=== PATIENT | female | born 1945 | race Caucasian/White ===

== ENCOUNTER 2023-11-23 06:58 | Day surgery (SDC) | payer MEDICARE, SELFPAY ==
[2023-11-10 06:57] VITALS: BMI 50.1
[2023-11-23] VITALS (27 sets, daily range): BP systolic 135–172; BP diastolic 63–104; BMI 48.2
[2023-11-23] MEDS: NSS 345 IV (08:14)
[2023-11-23 09:49] LABS: ACT-LR - POC 306 Seconds (116-155)
--- NOTE | 2023-11-23 10:26 | ITS.CL.CATH ---
Cigarette [facility]pper - Catheterization
Cardiac Catheterization
Procedure Report:
CARDIAC CATHETERIZATION REPORT
Date of Procedure: 11/23/2023
Referring: Sami Guo MD
Indication: Progressive exertional dyspnea with severe aortic stenosis
HEMODYNAMIC DATA
AO: 128/59
LV: Not done
LEFT VENTRICULOGRAPHY: Not done as we chose not to cross the stenotic aortic valve
CORONARY ANGIOGRAPHY
Dominance: Right
Left Main: Normal
LAD: Eccentric mildly calcific 70% mid LAD stenosis with otherwise mild luminal irregularities in the LAD system
Circumflex: Trivial luminal irregularities
RCA: Trivial luminal irregularities
FloWire assessment: At the conclusion of the diagnostic study, the patient underwent assessment of the functional significance of the 70% mid LAD lesion. Heparin is used for anticoagulation. A 5 Stateless EBU 3.5 guide was advanced to the left
coronary ostium. A [employer] wire was advanced through the lesion into the distal LAD. iFR measurements were 0.74, 0.76, and 0.74. These are all consistent with flow-limiting disease. Pullback showed the drop in PD/PA to be at the location of the
lesion site. Accordingly, decision was made to stent the LAD.
Angioplasty: Predilatation was accomplished with a 2.25 x 8 NC Euphora inflated to 10 josé luis with complete balloon expansion. A 2.5 x 12 Deepak MARY was then deployed at 16 josé luis and postdilated with a 2.75 NC Euphora to 17 josé luis along its entire length.
The final angiographic result was outstanding with no residual stenosis, normal antegrade flow, and no side branch compromise. There were no procedural complications. Plavix 600 mg was administered the procedure conclusion.
Closure Device: None-the procedure was performed via the left radial artery using a 5 Stateless system. Of note, there was no palpable right radial artery pulse and we therefore used the left radial artery for the procedure
Radiation (mGy): 853
DAP (cm2.Gy): 62.9
Fluoroscopy time: 8.0 minutes
CONCLUSIONS
1: Known symptomatic severe aortic stenosis not invasively evaluated
2: Single-vessel CAD as described-a 70% mid LAD lesion was found to be flow-limiting by iFR 0.74
3. Successful stenting of mid LAD stenosis using 2.5 x 12 Heaters MARY postdilated with 2.75 mm noncompliant balloon
4. Recommend triple therapy (Xarelto at reduced dose of 15 mg, aspirin 81 mg, Plavix 75 mg) for 1 week then stop aspirin and continue treatment with Xarelto 15 mg and Plavix 75 mg for 12 months after which time Xarelto should be increased back to
20 mg and Plavix exchanged for aspirin
5. Proceed with evaluation for TAVR. The patient has already undergone CTA and will need only CT surgical consultation
Copy to: Sami Guo MD, Ever Hua MD
Fito Echevarria MD, [facility], [facility]
--- NOTE | 2023-11-23 11:43 | CONSULT.STRU ---
Addendum entered and electronically signed by ROBERT Taylor 11/25/23 14:23:
Reviewed Ms. Lynch with the heart team in the SDM meeting. The team is agreeable to proceed with TF TAVR utilizing a 23mm S3. She is scheduled to see Dr. Trejo on 12/06. Gave her a tentative date for TAVR 12/29. Allowed for and answered
questions.
Original Note:
Consultation
-
Date/Time Consultation Requested: 11/23/2023
Date/Time Consultation Performed: 11/23/2023
Requesting Provider: Fito Echevarria MD
Performing Provider: ROBERT Taylor
Reason for Consultation: /TAVR
Patient History
Physicians
Family Physician: Ever Hua MD
Outpatient Bad Cloth Checker: Sami Guo MD
Primary Bad Cloth Checker: Sami Guo MD
History of Present Illness
Ms. Lynch is a very pleasant 78 yof that presents with severe symptomatic . Echocardiogram from 11/03/2023 is notable for EF 65-70%, aortic valve P/M 60/47, YOLA 1.0, pk mateusz 3.87, Severe MAC , mild MR, P/M 13.6/6.1, MVA 1.8. Patient was
evaluated by the heart team in January of 2023 and concluded the aortic stenosis was moderate at that time. The team was agreeable to follow with her primary hot die picker and when the patient became more symptomatic and the progressed to severe, the
team would re-evaluate and schedule her for TAVR. Ms. Lynch states she has become more sob/ BATISTA and her fatigue has become notably worse. She had cardiac catheterization today and she received a MARY to LAD.
Reviewed the evaluation process for TAVR. Patient has had her TAVR CT scan completed. She will meet with CT surgery and will need to get dental clearance. The heart team will review all of her studies and make a recommendation for the best treatment
option. Appointment for CT surgery, Dr. Trejo has been given to patient. Allowed for and answered questions at bedside
Past Medical History
Past Medical History: Atrial Fib (PAF. C2V 5- Xarelto), CAD (recent MARY to LAD, [place]), HTN, MERA (CPAP), Valvular Disease (Aortic stenosis, severe MAC) and Other (hyperlipidemia, RA, OA, overactive bladder, carpal tunnel syndrome, RLS, herniated disc,
COVID)
Past Surgical History
Past Surgical History: Cholecystectomy and Other ((L) knee replacement, (R) shoulder replacement, laminectomy, Afib Ablation, DCCV, (R) carpal tunnel )
Dental History
Dr. Thrasher--[facility]--Dental clearance form faxed
Family History
Mother: at Age (70) and Cause of (lung ca)
Father: at Age (98)
Social History
Alcohol: Occasional
Drug: None
Tobacco: Non-Smoker
Personal: Single
Living: Alone
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
Covid Vaccination History:
Pfizer x2, plus 1 booster, +Covid virus 08/2020 'bad cold', rec'd antibodies
Allergies
Allergy/AdvReac Type Severity Reaction Status Date / Time
pollen extracts Allergy congestion Verified 11/23/23 07:47
Home Medications
�Medication �Instructions �Recorded �Confirmed �Type
Multiple Vitamins 1 tab PO DAILY 03/20/19 11/23/23 History
atorvastatin 20 mg tablet (Lipitor) 20 mg PO HS 03/20/19 11/23/23 History
coenzyme Q10 300 mg capsule (Co 300 mg PO DAILY 03/20/19 11/23/23 History
Q-10)
infliximab 100 mg intravenous 600 mg IV .EVERY 8 WEEK 03/20/19 11/23/23 History
solution (Remicade)
lysine 500 mg tablet 500 mg PO DAILY 03/20/19 11/23/23 History
mirabegron 50 mg tablet,extended 50 mg PO HS 03/20/19 11/23/23 History
release 24 hr (Myrbetriq)
cholecalciferol (vitamin D3) 25 25 mcg PO DAILY 11/08/23 11/23/23 History
mcg (1,000 unit) tablet (Vitamin
D3)
metoprolol succinate 50 mg 50 mg PO HS 11/08/23 11/23/23 History
tablet,extended release 24 hr
olmesartan 20 mg tablet 20 mg PO DAILY 11/08/23 11/23/23 History
aspirin 81 mg tablet,delayed 81 mg PO DAILY 11/23/23 11/23/23 History
release
clopidogrel 75 mg tablet 75 mg PO DAILY #90 tabs 11/23/23 Rx
nitroglycerin 0.4 mg sublingual 0.4 mg sublingual [id number] PRN 11/23/23 Rx
tablet chest pain #25 tabs
rivaroxaban 15 mg tablet (Xarelto) 15 mg PO QPM #90 tabs 11/23/23 Rx
STS%
STS %: 6.97
Review of Systems
-
History Source: Patient
General: Reports Fatigue
HEENT: Reports No Symptoms
Respiratory: Reports SOB and BATISTA
Cardiac: Reports No Symptoms
Abdomen/GI: Reports No Symptoms
: Reports No Symptoms
Musculoskeletal: Reports Joint Pain
Skin: Reports No Symptoms
Neurological: Reports No Symptoms
Physical Exam
Vital Signs
Temp 98.2 F 11/23/23 07:31
Temp route: Oral 11/23/23 07:31
Pulse 77 11/23/23 07:31
Blood pressure 135/101 11/23/23 07:31
Blood pressure extremity used: Left upper arm 11/23/23 07:31
Position: Sitting 11/23/23 07:31
SaO2 96 11/23/23 07:31
Oxygen Mode of Delivery Room air 11/23/23 07:31
Can the patient verbally communicate their pain? Yes 11/23/23 07:31
Actual Weight 115.666 kg 11/23/23 07:30
Body Mass Index (BMI) 48.2 11/23/23 07:30
Labs
11/05/2023:
BUN/Creatinine: 21/0.8
GFR: >60
Albumin: 3.6
HH 11.1/32.8
plt 240K
Diagnostic Studies
CT scan: 01/05/2023:
Measurements for proposed TAVR procedure
There is motion artifact on this examination, as well as relatively increased imaging noisy and blurring due to relatively large body habitus.
Best quality images obtained from the 40% end- systolic phase images.
Trileaflet aortic valve. Moderate calcification. No significant calcification extending into the left ventricular outflow tract.
Aortic annulus: 27.3 mm x 18.7 mm. Measured cross-sectional area of 402 sq mm.
Left ventricular outflow tract: Measured cross-sectional area of 380 sq mm.
Sinuses of Valsalva: 31.1 mm x 27.1 mm x 31.7 mm.
Sinotubular junction: Minimal calcification. 23.8 mm x 23.6 mm.
Distance from aortic annulus to left coronary artery origin: 13.4 mm.
Distance from aortic annulus to right coronary artery origin: 14.7 mm
Estimated coplanar angle: SALVADOREAN 34, caudal 8.
Minimum diameters of aorta and iliofemoral arteries:
AORTA
Moderate eccentric calcification. 14.7 mm x 12.1 mm.
RIGHT
Right common iliac: Mild to moderate calcification. 10.9 mm x 8.6 mm.
Right external iliac: 9.6 mm x 8.0 mm.
Right COMPLAINT CLERK: 9.8 mm x 7.7 mm.
Right SFA: 9.0 mm x 6.1 mm.
LEFT
Left common iliac: Minimal calcification. 10.9 mm x 8.6 mm
Left external iliac: 9.5 mm x 8.1 mm.
Left COMPLAINT CLERK: 8.8 mm x 7.2 mm.
Left SFA: 7.3 mm x 6.0 mm
Echocardiogram 11/03/2023:
CONCLUSIONS
1. Left atrial enlargement.
2. Severe aortic stenosis.
3. Mild mitral stenosis/regurgitation
4. Normal left and right ventricular systolic function.
5. Grade 2 diastolic dysfunction
Mitral Valve
The mitral valve is poorly visualized due to mitral annular calcification.
Severe mitral annular calcification. Mild mitral regurgitation. There is a
peak mitral valve gradient of 13.6 mmHg with a mean of 6.1 mmHg. Mitral valve
area calculated by VTI is 1.8 cm2. These findings are suggestive of mild
stenosis.
Aortic Valve
Thickened/calcified and deformed aortic valve that exhibits decreased opening.
No obvious aortic insufficiency. There is a peak aortic valve gradient of 60
mmHg with a mean of 47 mmHg. The aortic valve area is calculated at 1.0 cm2 by
continuity. These findings are suggestive of severe stenosis.
Cardiac Catheterization:
CONCLUSIONS
1: Known symptomatic severe aortic stenosis not invasively evaluated
2: Single-vessel CAD as described-a 70% mid LAD lesion was found to be flow-limiting by iFR 0.74
3. Successful stenting of mid LAD stenosis using 2.5 x 12 De Leon MARY postdilated with 2.75 mm noncompliant balloon
4. Recommend triple therapy (Xarelto at reduced dose of 15 mg, aspirin 81 mg, Plavix 75 mg) for 1 week then stop aspirin and continue treatment with Xarelto 15 mg and Plavix 75 mg for 12 months after which time Xarelto should be increased back to
20 mg and Plavix exchanged for aspirin
5. Proceed with evaluation for TAVR. The patient has already undergone CTA and will need only CT surgical consultation
Exam
General: Well Developed and No Apparent Distress
HEENT: Normocephalic and Moist Mucous Membranes
Neck: Trachea Midline
Respiratory: Clear
Cardiac: Regular Rhythm and Murmur (III/ MARILOU)
GI: Soft and Non Tender
Rectal: Deferred by Provider
Skin: Warm and Dry
Neuro: Awake, Alert, Oriented and AO x 3
Psych: Calm
Assessment / Plan
-
Aortic stenosis
Continue with TAVR evaluation
TAVR CT scan (completed 01/05/2023)
CT surgical consult (MPT 12/06)
Frailty testing and [id number] at consult
Dental clearance (form faxed)
Continue Xarelto and plavix
Heart team discussion
CAD--Recent MARY-LAD
Continue plavix/xarelto/ atorvastatin/metoprolol
Cardiac rehab after TAVR
Data Reviewed
-
EKG: Tracing Personally Visualized and interpreted
Principal Engineer: Report Reviewed by me and Discussed with Physician
Echo: Report Reviewed by me and Discussed with Physician
CT Scan: Report Reviewed by me and Discussed with Physician
Labs: Labs Reviewed by me
Old Records: Reviewed
Total Time Spent with Patient (in minutes): 45
--- NOTE | 2023-11-23 12:51 | PTCARENOTE ---
Spoke with the laborer vineyard regarding cardiac rehab consultation...the patient is not appropriate to be seen at this time due to upcoming CT consultation for possible TAVR. CR will follow and consult post TAVR.
--- NOTE | 2023-11-23 13:52 | W.PN.UPDATE ---
Update Note
Progress Note Update
Pt seen post LAD PCI. Left radial cath site without ht/bleeding, mild bruising noted distally to site, non tender. Post EKG NSR 70s, no acute changes, no VT/arrhythmia. Pt will be on triple therapy with aspirin 81mg/d, plavix 75mg/d, and xarelto
15mg/d (decreased from 20mg) for 1 week, then stop aspirin and remain on plavix/xarelto only. Pt understands importance of uninterrupted therapy as instructed. Cardiac rehab consulted. She has severe and is currently in TAVR workup. Valve
coordinator consulted today. Followup with Dr. Guo as scheduled and with CT surgery. Home today if cath site/tele remain stable.
== END 2023-11-23 15:10 | disposition home or self-care (01) ==
LOC: CATH 06:58
PROVIDERS: ATTENDING PHYSICIAN Internal Medicine Cardiovascular Disease; FAMILY PHYSICIAN Internal Medicine; OTHER PHYSICIAN Internal Medicine Cardiovascular Disease
DX: I25.10 Atherosclerotic heart disease of native coronary artery without angina pectoris (principal); I35.0 Nonrheumatic aortic (valve) stenosis; I10 Essential (primary) hypertension; E66.01 Morbid (severe) obesity due to excess calories; Z68.43 Body mass index [BMI] 50.0-59.9, adult; M19.90 Unspecified osteoarthritis, unspecified site; M48.00 Spinal stenosis, site unspecified; G47.33 Obstructive sleep apnea (adult) (pediatric); Z79.01 Long term (current) use of anticoagulants; R06.02 Shortness of breath; Z79.82 Long term (current) use of aspirin; I25.2 Old myocardial infarction
CPT/HCPCS: 85347; 93005; 93454; 93571; C1725; C1769; C1874; C1894; C9600; Q9967

== ENCOUNTER 2023-12-30 07:28 | Inpatient (IN) | payer MEDICARE, SELFPAY ==
[2023-12-22 11:53] VITALS: BMI 49.1
[2023-12-22 13:03] LABS: % Basophils 0.5 % (0-2); % Eosinophils 2.3 % (0-6); % Immature Granulocytes 0.3 % (0-0.5); % Lymphocytes 32.2 % (20.5-51.1); % Monocytes 10.4 % (1.7-9.3); % Neutrophils 54.3 % (42.2-75.2); Absolute Eosinophils 0.2 10^3/uL (0-0.7); Absolute Lymphocytes 2.5 10^3/uL (1.2-3.4); Absolute Monocytes 0.8 10^3/uL (0.1-0.6); Absolute Neutrophils 4.2 10^3/uL (1.4-6.5); Hematocrit 32.3 % (37.0-47.0); Hemoglobin 10.8 g/dL (12.0-16.0); Mean Corp Hgb Conc. 33.4 g/dL (33.0-37.0); Mean Corpuscular Hgb 29.9 pg (27.0-31.0); Mean Corpuscular Volume 89.5 fL (81.0-99.0); Mean Platelet Volume 9.5 fL (7.4-10.4); Nucleated Red Blood Cells % 0 %; Platelet Count 256 10^3/uL (130-400); Red Blood Cell Count 3.61 10^6/uL (4.20-5.40); Red Cell Dist. Width 14.1 % (11.5-14.5); White Blood Cell Count 7.7 10^3/uL (4.8-10.8)
[2023-12-22 13:18] LABS: INR 2.02; PT 23.1 Sec (11.4-14.6)
[2023-12-22 13:19] LABS: APTT 42.3 Sec (23.4-35.0)
[2023-12-22 13:34] LABS: Urine Albumin Negative (Neg - Trace); Urine Bilirubin Negative (Negative); Urine Character Clear (Clear); Urine Color Yellow; Urine Glucose Negative (Negative); Urine Ketone Negative (Negative); Urine Leukocyte Negative (Negative); Urine Nitrite Negative (Negative); Urine Occult Blood Negative (Negative); Urine Urobilinogen Negative (Neg - 1+)
[2023-12-22 13:35] LABS: ALT (SGPT) 28 U/L (0-35); AST (SGOT) 35 U/L (14-36); Albumin 3.8 g/dl (3.5-5.0); Alkaline Phosphatase 70 U/L (38-126); Blood Urea Nitrogen 23 mg/dl (7-17); Calcium 9.5 mg/dl (8.4-10.2); Carbon Dioxide 25 mmol/L (22-30); Chloride 107 mmol/L (98-107); Direct Bilirubin 0.3 mg/dl (0.0-0.4); Estimated Creatinine Clearance 62 ml/min; Glucose 106 mg/dl (70-99); Potassium 4.6 mmol/L (3.5-5.1); Sodium 140 mmol/L (135-145); Total Bilirubin 0.7 mg/dl (0.2-1.3); Total Protein 7.1 g/dl (6.3-8.2); eGFR > 60.00
[2023-12-22 13:38] LABS: NT-proBNP 272 pg/ml
--- NOTE | 2023-12-22 14:00 | CM ---
Chart reviewed. Met with the patient in PAT. Reviewed preoperative and postoperative instructions and restrictions, along with showering guidelines. Patient unable to use the CHG soap 2/2 rash. Philomena Tim aware and gave patient ok to use
Dial antibacterial soap. Patient is agreeable to a visit by CT Transitional RN. Patient is independent of ADLS, lives alone in a apartment, 3rd floor, elevator access, ramp to enter into the complex. Patient does wear CPAP and is going to bring
her device in with her. Plan is for the patient to return home with CT Transitional RN.
[2023-12-23 08:49] LABS: Glycohemoglobin (HgbA1c) 6.6 % (4.0-5.6)
[2023-12-30] VITALS (19 sets, daily range): BP systolic 118–154; BP diastolic 46–117; BMI 49.1
--- NOTE | 2023-12-30 08:19 | CM ---
Reviewed chart. Ms. Lynch is in the operating room today. Prior to admission she resides alone in a third floor apartment with elevator access. She has a ramp to enter the complex. Prior to admission she was independent with ADLs. She has a CPAP
Machine at home. Medical work-up in progress. The discharge plan is to return home with a home visit by the Cardiothoracic Transitional Care Nurse when medically stable.
--- NOTE | 2023-12-30 09:15 | W.CVOR.SURPR ---
CVOR Surgeon Immed Pre Op
-
I have examined this patient prior to performance of the scheduled procedure.
The patient's condition is unchanged from the time of the dictated/written History and
Physical and the patient is able to undergo the scheduled procedure.
TF TAVR, Full Rescue
[2023-12-30] MEDS: ANCEF 10 IV ×2 (10:00→10:30)
[2023-12-30 11:34] LABS: ACT-LR - POC 331 Seconds (116-155)
--- NOTE | 2023-12-30 11:58 | W.PN.CT.SURG ---
CT Surgery Operative Note
-
OPERATIVE REPORT
Preoperative Diagnosis: Severe aortic valve stenosis, symptomatic
Postoperative Diagnosis: Same
Procedure(s) Performed: Left trans femoral TAVR with a 23 mm Quinn TAVR valve
Date of Procedure: 12/30/2023
Comorbidities:
1. Severe aortic stenosis, symptomatic
2. Acute on chronic congestive heart failure with LVEDP elevated 25-28 pre-TAVR
3. Morbidly obese with BMI of nearly 50
4. Hypertension
5. Hyperlipidemia
6. Obstructive sleep apnea on CPAP
7. Rheumatoid arthritis
8. Osteoarthritis
9. Restless leg syndrome
10. History of COVID infection
Cardiac Surgeon: Boyd Sauceda MD, MS
Circular Knitter Helper: Stephen Echevarria MD
Anesthesia: Conscious Sedation and Local Analgesia
EBL: 100cc
Products: none
Implant: 23 mm normal, Quinn LILIAN ultra valve, SN: [id number]
Indication(s) for Procedures: 78-year-old female with symptomatic severe aortic stenosis. CT-TAVR protocol revealed acceptable anatomy for TAVR access and implantation.
Start time: 1037hrs
Deployment time: 1135hrs
End time: 1154hrs
Radiation Dose (mGy): 634.49
DAP (cm2.Gy): 63.7123
Fluoroscopy time (minutes): 10.7
Contrast volume (ml): 94
TAVR gradient (mmHg): 8-9mmHg
Heparin Dose: 90282ymbct
Protamine Dose: 40mg
Final Valve Positionin/10
Findings: Preoperative LVEF was 60% and was 60% following TAVR without inotropic support. Function was overall normal without regional wall motion abnormalities or dyskinesia. The aortic valve was well seated without detectable PVL and mean gradient
across the new valve was 8-9mmHg. After short period of rapid pacing and deployment of the valve the patient returned to sinus while on the lab aide table. There was successful placement of 23 millimeter nominal TAVR valve without acute
complications. LVEDP was measured to be 25 to 28 mmHg and include acute on chronic congestive heart failure with volume overload. Lasix to be given in the ICU. Due to her body habitus and MERA, she required LMA for airway management during the
procedure.
Access:
1. Device -left common femoral artery, perclose x 2
2. Pigtail -right common femoral artery [+ 6Fr angioseal]
3. Transvenous Pacer -right common femoral vein
4. Attempted left radial access however was unable to thread the catheter over the wire likely due to a pre-existing lesion in the common brachial artery
Description of Procedure: The patient was taken to the lab aide. Their identity and procedure to be performed were verified and they were positioned supine on the lab aide table. Induction via conscious sedation. The patient was then prepped and
draped from chin to thigh in a sterile fashion. A preoperative time-out was performed with all members of the team present. Arterial and venous access was performed using fluoroscopy with micropuncture and Seldinger technique. Two perclose devices
were used on the device side followed by access to the aorta with a stiff wire to facilitate E-sheath placement. Heparin was given. A stiff straight wire and AL-1 catheter was used to cross the aortic valve. An LVEDP was measured here. The stiff
wire was exchanged for an extra stiff coiled tip wire. The valve was prepped and mounted on to the device carrier. An ACT of >250 was achieved. We verified x 3 that the valve was mounted in the correct orientation with the skirt of the valve
directed toward the tip of the device carrier. We advanced the device into the descending thoracic aorta where the valve was them mounted onto the balloon under fluoroscopy. The device was flexed and advanced over the arch into the root and
positioned across the aortic valve. Contrast fluoroscopy was used to visualize the prosthesis across the valve and to guide positioning. A pigtail catheter in the RCC as used as a guide. We aimed to have the bottom of the device marker at the
annular hinge point. The device sheath was pulled back. We performed a quick pre-deployment time out. The pacer was turned on and had capture. Blood pressure fell accordingly, angiography was done to verify the intended final placement and the valve
was deployed with 5 seconds of rapid pacing to nominal volume. The balloon was deflated and the pacer was turned off. We had recovery of vitals. The device carrier was unflexed and positioned back in the descending thoracic aorta. A transthoracic
echocardiogram was performed. The device was removed from the E-Sheath maintaining wire access followed by removal of the E-sheath as we cinched down the perclose devices. There was acceptable hemostasis. The pigtail was withdrawn into the
descending/abdominal and completion aortogram with runoff run-off angiography was performed. There was no stenosis or dissection of bilateral iliofemoral systems. There was acceptable hemostasis of bilateral groins and manual pressure was held
following wire removal. Low dose protamine was administered after checking another ACT.
All instrument, sponge, and needle counts were confirmed to be correct x 2 at the end of the operation. The patient was transferred to the cardiac intensive care unit in stable condition.
I, Dr. Boyd Sauceda, was present, scrubbed for, and performed all critical elements of this procedure.
Boyd Sauceda MD
Cardiothoracic Surgeon
[facility]
This operative dictation was created using the [employer] dictation system. Please excuse any grammatical, typographical, or 'sound alike' errors
--- NOTE | 2023-12-30 12:24 | ITS.CL.TAVR ---
Generation Manager - TAVR Report
TAVR PRocedure
Procedure Report:
TRANSCATHETER AORTIC VALVE REPLACEMENT REPORT
Date: 12/30/2023
Referring physician: Sami Guo MD
Operators:
model set artist: Fito Echevarria MD
Cardiac surgeon: Boyd Sauceda MD
Procedure:
Conscious sedation was provided by anesthesia. Given concern about the risk of vascular complications in the setting of a BMI of 49, we opted to access the left radial artery. The left radial artery was accessed and a 6 Upper Sorbian pigtail catheter
advanced after a table J-wire was advanced into the aortic root. Quite surprisingly, the pigtail catheter would not advance past the brachial location. The 5 Upper Sorbian pigtail was replaced with a 4 Upper Sorbian pigtail but this also did not pass the
brachial zone. We then advanced a 4 Upper Sorbian JR4 but once again we were unable to get through the brachial area. At this point we made a decision to abandon the radial approach and placed the pigtail via the right femoral artery.using a
micropuncture technique, 6F sheaths were placed in the RFA and RFV. A transvenous pacemaker was advanced to the RV and excellent thresholds obtained. A pigtail catheter was advanced to the aortic root where low volume injections were performed to
identify an appropriate angle for valve deployment. Access was then obtained in the left femoral artery using a micropuncture technique. A 6Fsheath was placed and angiography confirmed a [employer] puncture site. Heparin 5000 units was administered. Two
perclose sutrures were preset using the preclose technique. An 8F sheath was placed in the LFA and an Amplatz extra stiff wire advanced into the thoracic aorta. The ileofemoral vessels were dilated using the Quinn dilator. An Quinn E sheath was
advanced into the descending thoracic aorta. Additional heparin 5000 units was administered. The valve was crossed using a diagnostic 6F AL1 catheter and a straight wire. The LVEDP was elevated at 28 mmHg consistent with acute on chronic CHF. An
Amplatz extra stiff wire with a homemade curve was placed in the LV apex. Balloon aortic valvuloplasty was not performed. An Quinn 23 mm Dano S3 valve was then advanced through the E sheath and prepared for transit around the aortic arch. The
valve was carefully advanced across the aortic annulus and deployed during rapid ventricular pacing. Echocardiography and aortography confirmed an excellent result with trace AI and mean gradient 9 mmHg. The valve deployment system was removed. The
Quinn E sheath was then removed and hemostasis obtained with the two perclose sutures. Final angiography demonstrated no evidence of ileofemoral dissection/perforation and good runoff below the common femoral artery. The pacemaker was removed and
the RFV sheath removed with manual compression. The RFA sheath was removed using a 6 F angioseal.
Radiation (mGy): 634
DAP (cm2.Gy): 63.7
Fluoroscopy time: 10.7 minutes
Conclusions: Successful placement of 23 mm Dano S3 aortic valve via left transfemoral approach with no acute complications.
Copy to: Sami Guo MD, Ever Hua MD
--- NOTE | 2023-12-30 12:38 | W.PN.UPDATE ---
Update Note
Progress Note Update
Reviewed Ms. Lynch with the heart team in the SDM meeting and confirmed a 23 mm S3 via (L) TF access. Patient will resume Xarelto and plavix post TAVR. LVEDP 25mmHg. # 23mm S3 (serial# [id number]) successfully deployed via left transfemoral
access. Post implant MG 9mmHG.
[2023-12-30] MEDS: LASIX 20 MG IV (13:00)
--- NOTE | 2023-12-30 14:00 | PTCARENOTE ---
Rec'd report from Isi in the cardiac cath technician; Pt rec'd in bed AAOx3, w/no c/o CP or SOB. Pt's VS stable w/HR in 60's, BP 128/54. Pt's bilat groin dressings C/D/I w/no signs or symptoms of bleeding or hematoma. Pt w/L radial band in place w/no signs or
symptoms of bleeding or hematoma. Pt on bedrest until 1600. Plan of care discussed w/pt & pt verbalized understanding. Pt w/call ackerman within reach & plan of care ongoing.
[2023-12-30 14:57] LABS: ACT-LR - POC > 397 Seconds (116-155)
[2023-12-30] MEDS: FLUSH (NSS) 2 FLUSH IV (18:47)
[2023-12-30] MEDS: ANCEF 5 IV (18:47)
[2023-12-30] MEDS: MYRBETRIQ EXTENDED RELEASE 50 MG PO (21:44)
[2023-12-30] MEDS: TOPROL XL 50 MG PO (21:45)
[2023-12-30] MEDS: TYLENOL 650 MG PO (23:24)
[2023-12-31] VITALS (7 sets, daily range): BP systolic 98–141; BP diastolic 48–95; PULSE 87; O2SAT 92–100; BMI 48.8
--- NOTE | 2023-12-31 00:23 | W.PN.CT ---
Addendum entered and electronically signed by ROBERT Ramírez 01/03/24 09:54:
CDI inquiry:
Acute on chronic diastolic HFpEF
Addendum entered and electronically signed by Boyd Sauceda MD 12/31/23 10:54:
I saw and examined the patient.
The PA's note was reviewed and I agree with the note.
Comment:
Elevated LVEDP pre tavr indicating acute on chronic CHF with volume over load. Diurese. Echo today. If it look migue, possible discharge later.
Original Note:
Today's Communication / Plan
-
No significant events overnight
Diuresis = 20mg of lasix given 07/31
Monitor for bleeding if hypotensive�
Cont. current meds (Lipitor, Toprol, Xarelto, Plavix)�
Encourage IS and OOB to chair�
Assessment / Plan
-
S/P Placement of 23 mm Dano S3 aortic valve via left transfemoral approach POD 1�
PMH:�
CAD w LAD MARY 12/02�
PAF s/p ablation and CV 22�
LTKR 13�
R shoulder replacement 13�
Laminectomy C1- 3RA �
HTN�
HLD�
MERA > CPAP�
OAB�
Obesity�
Subjective
Procedure
S/P Placement of 23 mm Dano S3 aortic valve via left transfemoral approach POD 1�
-
Date of Service: December 31, 2023
Objective Data
-
PT 23.1 Sec (11.4-14.6) H 12/22/23 12:29
INR 2.02 12/22/23 12:29
APTT 42.3 Sec (23.4-35.0) H 12/22/23 12:29
Vital Signs
Vital Signs
Temp Pulse Resp BP Pulse Ox
97.7 F 81 20 144/58 97
12/30/23 23:40 12/30/23 21:45 12/30/23 23:40 12/30/23 21:45 12/30/23 23:40
CT Intake/Output/Weight
12/30/23 12/30/23 12/31/23
06:59 18:59 06:59
Intake Total 1440 / 1440
Output Total 750 / 750
Balance 690 / 690
SaO2: 97
--- NOTE | 2023-12-31 02:55 | PTCARENOTE ---
Pt received start of shift, HR SR. B/l groin sites CDI, soft, no hematoma - Ecchymotic in surrounding area. Neuro intact, WNL. Pt OOB ambulating w/ walker and standby assist. Pt voiding well on own. Pt c/o -08/21 'hollow chest discomfort'. PRN
tylenol administered - see SEP. EKG completed. Call ackerman within reach.
[2023-12-31 05:28] LABS: Hematocrit 31.4 % (37.0-47.0); Hemoglobin 10.8 g/dL (12.0-16.0); Mean Corp Hgb Conc. 34.4 g/dL (33.0-37.0); Mean Corpuscular Hgb 29.8 pg (27.0-31.0); Mean Corpuscular Volume 86.7 fL (81.0-99.0); Mean Platelet Volume 9.4 fL (7.4-10.4); Platelet Count 230 10^3/uL (130-400); Red Blood Cell Count 3.62 10^6/uL (4.20-5.40); Red Cell Dist. Width 13.9 % (11.5-14.5); White Blood Cell Count 15.1 10^3/uL (4.8-10.8)
[2023-12-31 05:48] LABS: Blood Urea Nitrogen 25 mg/dl (7-17); Calcium 9.3 mg/dl (8.4-10.2); Carbon Dioxide 21 mmol/L (22-30); Chloride 108 mmol/L (98-107); Estimated Creatinine Clearance 62 ml/min; Glucose 136 mg/dl (70-99); Potassium 4.7 mmol/L (3.5-5.1); Sodium 138 mmol/L (135-145); eGFR > 60.00
[2023-12-31] MEDS: VITAMIN D3 (cholecalciferol) 25 MCG PO (07:52)
[2023-12-31] MEDS: FLUSH (NSS) 1 FLUSH IV (07:52)
[2023-12-31] MEDS: BENICAR 20 MG PO (07:52)
[2023-12-31] MEDS: XARELTO 15 MG PO (07:52)
[2023-12-31] MEDS: THERAGRAN 1 TABLET PO (07:52)
[2023-12-31] MEDS: PLAVIX 75 MG PO (07:52)
--- NOTE | 2023-12-31 08:11 | W.PN.ANS.POP ---
Anesthesia Post Operative
- Anesthesia Post Op Note
Vital Signs Stable-See Nursing Note: Yes
Airway Patent: Yes
Adequate Pain Control: Yes
Change in Mental Status: No
Current Postoperative Nausea & Vomiting: No
Anesthesia Complications: No
General Anesthetic Recall: No
Unplanned Admission: No
Post Op Hydration Adequate: Yes
--- NOTE | 2023-12-31 08:36 | PN.CDI ---
CDI
- -
CDI:
Physician Documentation Request
Admit Date: 12/30/23 07:[address] Surgery,
Clinical Indicators:
Patient admitted with severe aortic stenosis; s/p TAVR 12/29.
12/29 Operative Report, 'Preoperative LVEF was 60% and was 60% following TAVR without inotropic support... '
12/29 Family Resource Coordinator Report, 'The LVEDP was elevated at 28 mmHg consistent with acute on chronic CHF.'
12/29 Lasix 20 mg IV x 1.
Please provide further specificity regarding the most likely type of CHF you are evaluating, treating or monitoring:
Acute on chronic HFpEF
Other, please specify
Use of terms such as suspected, likely, concern for, or probable (associated with a specific diagnosis that is being evaluated, monitored, or treated as if it exists) are acceptable and can be coded in the inpatient setting, when documented at the
time of discharge.
Thank you,
NIGEL Sharp RN
CDI Specialist
available via tiger text
Please use your independent medical judgment in providing your response.
--- NOTE | 2023-12-31 09:38 | PTCARENOTE ---
The patient is aaox3, vss, 97% on RA. NSR is noted on the monitor. She has no complaints of SOB. BL groin sites are c/di with local ecchymosis noted. She does complaint that het left groin site is tender. Her left groin site is soft to palpation.
While removing the defibulation pads last night it caused some skin tears at the site. I redressed the sites, cleansed the tears, and applied foam dressings.
--- NOTE | 2023-12-31 10:30 | CARDSERVLU ---
Echocardiogram with Lumason completed after protocol screening completed. Allergies verified.
Patent IV site: ___Rt hand_
IV site flushed with 0.9% NaCl pre and post administration.
Diluted bolus method utilized to enhance visualization of ventricular robison.
Total volume given: _2.0___ mL
Patient tolerated all procedures well without complications.
--- NOTE | 2023-12-31 11:06 | W.DCSUMMARY ---
Discharge Summary
Discharge Data
Date of Admission: 12/30/23
Date of Discharge: 12/31/23
-
Pending Results: No
Hospital Course
Primary care physician: Sami Hua
Outpatient steel inspector: Sami Guo
Inpatient consultants: [facility] Cardiology
Procedures:
1. Transcatheter aortic valve replacement
Primary Diagnosis:
1. Severe aortic valve stenosis
Secondary Diagnoses:
1. Acute on chronic congestive heart failure with LVEDP elevated 25-28 pre-TAVR
2. Morbidly obese (BMI 48.8)
3. Hypertension
4. Hyperlipidemia
5. Obstructive sleep apnea on CPAP
6. Rheumatoid arthritis
7. Osteoarthritis
8. Restless leg syndrome
9. CAD w LAD MARY 12/02�
10. overactive bladder
11. Obstructive sleep apnea with CPAP use
12. PAF s/p ablation and CV 22�
13. History of LTKR �
14. History of shoulder replacement 2012�
HPI: Patricia Lynch a 78-year-old female electively admitted on 12/30/2023 for TAVR due to severe aortic stenosis.
Hospital course: Patient underwent left trans femoral TAVR #23 mm Quinn valve with Drs. Boyd Sauceda and Nimesh Echevarria. Patient had elevated LVEDP of 25�28 preprocedure and received 20 mg of IV Lasix postprocedure. Patient had acute urinary
retention with history of overactive bladder and was straight cathed x 1. Patient able to successfully void spontaneously afterwards. Chest x-ray on postop day #1 reported clear lungs and no pneumothorax. Predischarge TTE reported an EF 65-70%, AV
gradients 17/12mmHg, no AI, mild MR. Patient will be discharged on Xarelto and Plavix.
Home medication changes:
Discharge Plan
-
Patient Disposition: Home (Routine Discharge)
Discharge Diagnosis/Procedures: TF TAVR
Condition: Good
Diet: Low Fat, Low Cholesterol and 2 Gram Sodium
Activity: As tolerated
Driving Restrictions: No driving for 1 week
Bathing Restrictions: OK to Shower
Others Tests: Your 30-day echocardiogram is scheduled for: 01/31/2024 @ 12:[address] Guo's office
Other Services: Cardiac Rehab
Specialty Instructions: Weigh Daily- Call MD for wt gain/loss 3 lbs overnight/5 lbs in 1 week
Referrals:
CT Transitional Care Nurse [Outside] - in one to two days
(
The Cardiothoracic Transitional Care Nurse will call you to set up a visit in 1-2 days.)
[facility]. Cardiac Rehab [Outside] - 02/11/24 1:00 pm
(Cardiac Rehab Orientation appointment is on 02/11/24 at 1:00 pm
The Cardiac Rehab gym is located on the first floor of the [facility].)
Sami Guo MD [Active] - 02/04/24 2:20 pm
PRIVATE,PHYSICIAN [Family Provider] -
Prescriptions:
New
acetaminophen 325 mg Tablet
650 mg PO Q4HPRN PRN (Reason: LOCKETT, mild pain, or fever >101F) Qty: 0 0RF
Continued
lysine 500 MG tablet
500 mg PO DAILY
Co Q-10 300 MG capsule
300 mg PO DAILY
atorvastatin [Lipitor] 20 MG tablet
20 mg PO HS
infliximab [Remicade] 100 MG/10 ML recon soln
600 mg IV .EVERY 8 WEEK
Rx Instructions:
Last dose 12/16/23
mirabegron [Myrbetriq] 50 MG tablet extended release 24 hr
50 mg PO HS
metoprolol succinate 50 mg Tablet Extended Release 24 Hr
50 mg PO HS
olmesartan 20 mg Tablet
20 mg PO DAILY
cholecalciferol (vitamin D3) [Vitamin D3] 25 mcg (1,000 unit) Tablet
25 mcg PO DAILY
clopidogrel 75 mg tablet
75 mg PO DAILY Qty: 90 3RF
nitroglycerin 0.4 mg tablet, sublingual
0.4 mg sublingual [id number] PRN (Reason: chest pain) Qty: 25 2RF
Xarelto 15 mg tablet
15 mg PO DAILY
aspirin 81 mg Tablet,Chewable
81 mg PO DAILY
Patient Comments:
pt t00k 4 asa mo, tu then 81mg
multivitamin Tablet
1 tab PO DAILY
Discharge Orders:
Discharge Patient (As Directed); Ordered 12/31/23
Ordered By: Amado De Guzman
Care Plan Goals
Care Plan Goals:
Problem: Readiness for enhanced knowledge related to diagnosis and treatment plan
Goal: Understand your diagnosis and treatment plan needs, including medications if applicable.
Instructions: Know your diagnosis, underlying causes and treatment plan options, including medications if applicable. Consult with your health care team to learn about your diagnosis and treatment plan, including medications if applicable.
Discharge Date and Time
Print Language: IRISH
--- NOTE | 2023-12-31 16:16 | W.DCSUMMARY ---
Discharge Summary
Discharge Data
Date of Admission: 12/30/23
Date of Discharge: 12/31/23
-
Pending Results: No
Hospital Course
Primary care physician: Sami Hua
Outpatient grounds cleaner: Dr. Guo
Inpatient consultants: Nimesh florez
Procedures:
1. Left transfemoral TAVR with #23 PIPER 3 valve
Primary Diagnosis:
1. Severe symptomatic aortic stenosis
Secondary Diagnoses:
1. Coronary artery disease with drug-eluting stent of the LAD in 12/02
Paroxysmal atrial fibrillation status post ablation and cardioversion 2021
DJD/osteoarthritis
Hypertension
Hyperlipidemia
Obstructive sleep apnea with CPAP use at home
Obesity
Overactive bladder/OAB
Left total knee replacement 2012
Right shoulder replacement 2012
Laminectomy
HPI:
Patricia Lynch is a 78-year-old female presented to [facility] for elective admission for trans femoral valve replacement. She had previously undergone full cardiac workup and found to have severe aortic stenosis.
Hospital course:
Patient was admitted to [facility] on 12/30/2023 where later that morning she was brought to the cardiac Income Tax Analyst where she underwent trans femoral valve replacement with a #23 piper 3 valve. Procedure was performed by Dr. Florez and
Komal. She tolerated the procedure well and was returned to the IVU in hemodynamically stable condition. She was not on any drips and did not require pacing postprocedure. She did receive 20 mg of IV Lasix for elevated LVEDP. She did experience
urinary retention and required straight cath. Her first night in the IVU was uneventful.
It should be noted patient did not receive any blood transfusions during her entire hospitalization at [facility].
Postoperative day #1 EKG continued to show sinus rhythm. She was restarted on her home doses of Xarelto and Plavix. These were restarted because of a LAD stent on 5�24. Morning chest x-ray was clear.
Follow-up echo showed ejection fraction of 65 to 70%. Peak and mean gradients were 17/12 mmHg. No AI, mild MR. This was compared to echo performed yesterday after valve deployment which showed peak and mean gradients of 17/9 mmHg. No AI.
Patient was seen and evaluated by cardiology and cardiothoracic surgery and felt to be stable for discharge. Both groins were without hematoma or drainage. Distal pulses intact bilaterally.
Vital signs at time of discharge were as follows blood pressure 141/61 heart rate 68 regular, sinus rhythm on telemetry, respirations 18, 99% O2 sat on room air.
Home medication changes:
tylenol prn pain
Discharge Plan
-
Patient Disposition: Home (Routine Discharge)
Discharge Diagnosis/Procedures: TF TAVR
Condition: Good
Diet: Low Fat, Low Cholesterol and 2 Gram Sodium
Activity: As tolerated
Driving Restrictions: No driving for 1 week
Bathing Restrictions: OK to Shower
Others Tests: Your 30-day echocardiogram is scheduled for: 01/31/2024 @ 12:[address] Guo's office
Other Services: Cardiac Rehab
Specialty Instructions: Weigh Daily- Call MD for wt gain/loss 3 lbs overnight/5 lbs in 1 week
Referrals:
CT Transitional Care Nurse [Outside] - in one to two days
(
The Cardiothoracic Transitional Care Nurse will call you to set up a visit in 1-2 days.)
[facility]. Cardiac Rehab [Outside] - 02/11/24 1:00 pm
(Cardiac Rehab Orientation appointment is on 02/11/24 at 1:00 pm
The Cardiac Rehab gym is located on the first floor of the [facility].)
Sami Guo MD [Active] - 02/04/24 2:20 pm
PRIVATE,PHYSICIAN [Family Provider] -
Prescriptions:
New
acetaminophen 325 mg Tablet
650 mg PO Q4HPRN PRN (Reason: LOCKETT, mild pain, or fever >101F) Qty: 0 0RF
Continued
lysine 500 MG tablet
500 mg PO DAILY
Co Q-10 300 MG capsule
300 mg PO DAILY
atorvastatin [Lipitor] 20 MG tablet
20 mg PO HS
infliximab [Remicade] 100 MG/10 ML recon soln
600 mg IV .EVERY 8 WEEK
Rx Instructions:
Last dose 12/16/23
mirabegron [Myrbetriq] 50 MG tablet extended release 24 hr
50 mg PO HS
metoprolol succinate 50 mg Tablet Extended Release 24 Hr
50 mg PO HS
olmesartan 20 mg Tablet
20 mg PO DAILY
cholecalciferol (vitamin D3) [Vitamin D3] 25 mcg (1,000 unit) Tablet
25 mcg PO DAILY
clopidogrel 75 mg tablet
75 mg PO DAILY Qty: 90 3RF
nitroglycerin 0.4 mg tablet, sublingual
0.4 mg sublingual [id number] PRN (Reason: chest pain) Qty: 25 2RF
Xarelto 15 mg tablet
15 mg PO DAILY
aspirin 81 mg Tablet,Chewable
81 mg PO DAILY
Patient Comments:
pt t00k 4 asa mo, tu then 81mg
multivitamin Tablet
1 tab PO DAILY
Discharge Orders:
Discharge Patient (As Directed); Ordered 12/31/23
Ordered By: Amado De Guzman
Care Plan Goals
Care Plan Goals:
Problem: Readiness for enhanced knowledge related to diagnosis and treatment plan
Goal: Understand your diagnosis and treatment plan needs, including medications if applicable.
Instructions: Know your diagnosis, underlying causes and treatment plan options, including medications if applicable. Consult with your health care team to learn about your diagnosis and treatment plan, including medications if applicable.
Discharge Date and Time
Print Language: BULGARIAN
== END 2023-12-31 17:46 | disposition home or self-care (01) | DRG 266 ==
LOC: IVU 07:28
PROVIDERS: Physician Assistant Surgical; ADMITTING PHYSICIAN Thoracic Surgery (Cardiothoracic Vascular Surgery); CONSULT PHYSICIAN Internal Medicine Cardiovascular Disease; OTHER PHYSICIAN Internal Medicine Cardiovascular Disease; REFERRING PHYSICIAN Internal Medicine
PROC: 02RF38Z Replacement of Aortic Valve with Zooplastic Tissue, Percutaneous Approach (ICD-10-PCS; 2023-12-30)
DX: I35.0 Nonrheumatic aortic (valve) stenosis (principal); Z00.6 Encounter for examination for normal comparison and control in clinical research program; I50.33 Acute on chronic diastolic (congestive) heart failure; Z68.42 Body mass index [BMI] 45.0-49.9, adult; E66.01 Morbid (severe) obesity due to excess calories; I11.0 Hypertensive heart disease with heart failure; E78.5 Hyperlipidemia, unspecified; G47.33 Obstructive sleep apnea (adult) (pediatric); M06.9 Rheumatoid arthritis, unspecified; M19.90 Unspecified osteoarthritis, unspecified site; G25.81 Restless legs syndrome; I25.10 Atherosclerotic heart disease of native coronary artery without angina pectoris; I48.0 Paroxysmal atrial fibrillation; N32.81 Overactive bladder; R33.8 Other retention of urine; Z79.01 Long term (current) use of anticoagulants; Z86.16 Personal history of COVID-19; Z79.899 Other long term (current) drug therapy; Z95.5 Presence of coronary angioplasty implant and graft
CPT/HCPCS: 93308; 33361; 36415; 71045; 71046; 80048; 80053; 81003; 82248; 83036; 83880; 85025; 85027; 85347; 85610; 85730; 86850; 86900; 86901; 87070; 93005; 93306; 93321; 93325; C1760; C1769; C1894; Q9950; Q9967

== ENCOUNTER 2024-03-10 16:11 | Outpatient (RCR) | payer MEDICARE, SELFPAY | END 2024-03-10 23:59 | disposition home or self-care (01) | LOC: CRHB 16:11 | PROVIDERS: ATTENDING PHYSICIAN Internal Medicine Cardiovascular Disease; FAMILY PHYSICIAN Internal Medicine | DX: Z95.4 Presence of other heart-valve replacement (principal) | CPT/HCPCS: G0422; G0423 ==

== ENCOUNTER 2024-03-12 03:32 | Emergency (ER) | payer MEDICARE, SELFPAY ==
[2024-03-12 03:40] VITALS: BP 121/45; BMI 50.8
[2024-03-12 03:46] VITALS: BP 121/45
[2024-03-12 04:00] VITALS: BP 135/57
[2024-03-12 04:09] LABS: % Basophils 0.4 % (0-2); % Eosinophils 2.6 % (0-6); % Immature Granulocytes 0.2 % (0-0.5); % Monocytes 10.5 % (1.7-9.3); % Neutrophils 58.3 % (42.2-75.2); Absolute Eosinophils 0.2 10^3/uL (0-0.7); Absolute Lymphocytes 2.5 10^3/uL (1.2-3.4); Absolute Monocytes 0.9 10^3/uL (0.1-0.6); Absolute Neutrophils 5.2 10^3/uL (1.4-6.5); Hematocrit 28.7 % (37.0-47.0); Mean Corp Hgb Conc. 34.8 g/dL (33.0-37.0); Mean Corpuscular Hgb 29.6 pg (27.0-31.0); Mean Corpuscular Volume 84.9 fL (81.0-99.0); Mean Platelet Volume 9.9 fL (7.4-10.4); Nucleated Red Blood Cells % 0 %; Platelet Count 238 10^3/uL (130-400); Red Blood Cell Count 3.38 10^6/uL (4.20-5.40); Red Cell Dist. Width 13.2 % (11.5-14.5); White Blood Cell Count 8.9 10^3/uL (4.8-10.8)
[2024-03-12 04:19] LABS: ALT (SGPT) 21 U/L (0-35); AST (SGOT) 30 U/L (14-36); Albumin 3.6 g/dl (3.5-5.0); Alkaline Phosphatase 108 U/L (38-126); Blood Urea Nitrogen 21 mg/dl (7-17); Carbon Dioxide 19 mmol/L (22-30); Chloride 109 mmol/L (98-107); Estimated Creatinine Clearance 62 ml/min; Glucose 175 mg/dl (70-99); Potassium 3.9 mmol/L (3.5-5.1); Sodium 140 mmol/L (135-145); Total Bilirubin 0.5 mg/dl (0.2-1.3); Total Protein 6.6 g/dl (6.3-8.2); eGFR > 60.00
[2024-03-12 04:31] LABS: Troponin I < 0.012 ng/ml
[2024-03-12 05:00] VITALS: BP 126/61
[2024-03-12 06:14] VITALS: BP 114/47
--- NOTE | 2024-03-12 06:30 | ED.GENMED ---
History of Present Illness
General
Chief Complaint: Nose Bleed
Source: patient and ambulance crew
Exam Limitations: none
Time Seen by Provider: 03/12/24 04:12
Nursing documentation reviewed up to this point in time: agreed with
History of Present Illness
History of Present Illness:
This is a 79-year-old woman who has history of PAF status post A-fib ablation 2021. She has history of severe aortic stenosis and underwent TAVR in December of this year. She has history of obstructive sleep apnea, utilizes CPAP at nighttime and has
been suffering with intermittent primarily left nostril nosebleeds with significant bleeding end of January for which she was evaluated at [facility] ED at that time. She underwent nasal packing and discharged to home and has since been following
with ENT at [facility], Dr. Heck. Packing was removed to 3 days after ED visit end of January, left anterior septum was cauterized by ENT and she has been compliant with Vaseline at her nasal octaviano and compliant with avoidance of blowing or
picking her nose. She has had intermittent scant bleeding for which she uses a cotton ball to her left nostril when using her CPAP.
This morning she awoke and felt her left nostril running and was unsure if this was blood versus just a runny nose but while investigating she then developed palpitations feeling that her heart was beating very rapidly accompanied with mild
shortness of breath. Upon EMS arrival found to be in A-fib with rapid ventricular response. Remained hemodynamically stable and was given IV Cardizem, 10 mg prehospital with improvement in palpitations.
She denies chest pain, shortness of breath prehospital has since resolved.
She is chronically maintained on Xarelto, Plavix, low-dose aspirin. Due to intermittent nosebleeds Xarelto was held for several days but then resumed a few days ago.
During my initial evaluation patient noted to be in normal sinus rhythm, has converted spontaneously. Currently feeling well and at her baseline.
Past History
Past History
ED Past Medical History: Arrthythmia (Paroxysmal atrial fibrillation), HTN, Hypercholesterolemia, Valvular disease (Aortic stenosis status post TAVR December 2023) and Other (Rheumatoid arthritis; Obstructive sleep apnea, obesity)
ED Past Surgical History: Cardiac (TAVR December 2023. A-fib ablation 2021; PTCA with stent 2023), Orthopedic, Tonsilectomy and Other
Social History
Tobacco: Non-smoker
Alcohol: None
Drug: None
Personal: Single
Living: alone
Employment: Retired
Family History
Family History: Other (Noncontributory)
Phy Exam
Physical Exam
Physical Exam:
GENERAL: 79-year-old obese woman appears her stated age, bright and alert, pleasant, appears in no acute distress. Cottonball extruding from left nostril outer portions of which are dry.
EYE: anicteric
NECK: Supple, nontender, no meningismus, no significant adenopathy.
ENT: posterior pharynx is clear, no blood streaking posteriorly. Oral mucosa is moist. TM clear b/l, left nostril has scant organized clot within the midportion. There is scant minimal oozing from a pinpoint area left anterior septum.
CARDIAC: Regular rate and rhythm. no murmur.
LUNGS: Clear breath sounds bilaterally, no acute respiratory distress, no wheezes/rales/rhonchi
ABDOMEN: Soft, nondistended, without focal tenderness, normoactive BS.
NEUROLOGICAL: Alert and oriented x3, no focal neuro deficits.
SKIN: Warm and dry, minimally pale in color, skin intact. No rash.
MUSCULOSKELETAL: No C/C/E. peripheral pulses are full and equal b/l. No palpable tenderness.
PSYCH: Normal and appropriate interaction.
Course
Orders/Labs/Results
Orders:
Orders
03/12/24 03:35
Electrocardiogram (*1) Urgent
Reason for Study: Atrial Fibrillation
03/12/24 03:36
EKG- Treatment ONCE
03/12/24 03:57
Complete Blood Count/With Diff Urgent
Comprehensive Metabolic Panel Urgent
Troponin I Urgent
03/12/24 04:44
Electrocardiogram (*1) Urgent
Reason for Study: Atrial Fibrillation
03/12/24 04:45
EKG- Treatment ONCE
Abnormal Lab Results
03/12/24
03:57
RBC 3.38 L 10^6/uL
(4.20-5.40)
Hgb 10.0 L g/dL
(12.0-16.0)
Hct 28.7 L %
(37.0-47.0)
Absolute Monos (auto) 0.9 H 10^3/uL
(0.1-0.6)
Monocytes % 10.5 H %
(1.7-9.3)
Chloride 109 H mmol/L
(98-107)
Carbon Dioxide 19 L mmol/L
(22-30)
BUN 21 H mg/dl
(7-17)
Glucose 175 H mg/dl
(70-99)
03/12/24 03:57
03/12/24 03:57
Vital Signs
Initial and Last Documented VS:
Initial Vital Signs
Temp Pulse Resp BP Pulse Ox
97.5 F 107 26 121/45 96
03/12/24 03:40 03/12/24 03:40 03/12/24 03:40 03/12/24 03:40 03/12/24 03:40
Last Documented Vital Signs
Temp Pulse Resp BP Pulse Ox
97.5 F 81 16 114/47 93
03/12/24 03:40 03/12/24 06:15 03/12/24 06:15 03/12/24 06:14 03/12/24 06:15
Procedures
Nosebleed
Drug treatment: Lidocaine and Epinephrine
Treatment: Silver nitrate cautery
Post treatment bleeding: none- good control
MDM/Problems Addressed
Differential Diagnosis Includes:
Patient presents via EMS with complaints of palpitations found to be in atrial fibrillation with rapid ventricular response. Given IV Cardizem prehospital and has since converted to normal sinus rhythm after arrival to the ED.
She also notes intermittent left nostril epistaxis, ongoing issue over the past month with mild bleeding tonight and noted to have scant oozing of blood from anterior septum left nostril.
Will plan to cauterize the left anterior septum and continue personnel monitor.
Due to recurrent epistaxis, concern for anemia will check labs.
Due to A-fib with rapid ventricular response, history of CAD and complaints of palpitations, shortness of breath concern for ACS thus will check troponin.
Chronic conditions affecting care: HTN, CAD and Arrhythmia
Acute Exacerbation and/or Progression of Chronic Illness: Arrhythmia
*Pulse Oximetry
Patient hypoxic: no
*EKG
Interpreted by ED Provider?: Yes
Interpretation: abnormal
Comparison EKG: changes noted (A-fib with RVR has replaced normal sinus rhythm December 2023)
Rate: tachycardiac
Rhythm: a-fib
[place]: normal axis
Interval: normal interval
QRS Pattern: normal QRS
Ischemia: non-specific ST changes
*Devulcanizer Operator Interpretation
Rate: normal
Interpretation: normal
Rhythm: sinus
*Critical Care Note
Total Time (30-74mins, 75-104mins- exclusive of procedures): Not Applicable
Update Note
Update Note:
03/12/2024 0638 AM
Patient remains comfortable, without complaints.
Left nostril anterior septum, pinpoint site of bleeding successfully cauterized with silver nitrate. There has been no return of bleeding.
Monitor continues show normal sinus rhythm.
Labs show mild anemia but unchanged from previous December of this year.
Troponin is negative.
Will discharge to home with recommendations for prompt follow-up with her ENT specialist as well as her water chaser.
Continue to hold aspirin, recommend she temporarily hold Xarelto over the next 3 days then can resume. Continue Plavix as directed.
ED Attending Note
-
Portions of this chart may have been created with voice recognition software.� Occasional wrong word or��sound alike� substitutions may have occurred due to the inherent limitations of voice recognition software.
Discharge Plan
Departure
Patient Disposition: Home (Routine Discharge)
Date of Disposition: 03/12/24
Time of Disposition: 07:05
Patient with high blood pressure during this ER visit?: No
Condition: Good
Discharge Problem:
PAF (paroxysmal atrial fibrillation), Anterior epistaxis
Instructions: Atrial Fibrillation (DC), Nosebleeds (DC)
Prescriptions:
No Action
lysine 500 MG tablet
500 mg PO DAILY
Co Q-10 300 MG capsule
300 mg PO DAILY
atorvastatin [Lipitor] 20 MG tablet
20 mg PO HS
infliximab [Remicade] 100 MG/10 ML recon soln
600 mg IV .EVERY 8 WEEK
Rx Instructions:
Last dose 12/16/23
mirabegron [Myrbetriq] 50 MG tablet extended release 24 hr
50 mg PO HS
metoprolol succinate 50 mg Tablet Extended Release 24 Hr
50 mg PO HS
olmesartan 20 mg Tablet
20 mg PO DAILY
cholecalciferol (vitamin D3) [Vitamin D3] 25 mcg (1,000 unit) Tablet
25 mcg PO DAILY
clopidogrel 75 mg tablet
75 mg PO DAILY Qty: 90 3RF
Xarelto 15 mg tablet
15 mg PO DAILY
multivitamin Tablet
1 tab PO DAILY
acetaminophen 325 mg Tablet
650 mg PO Q4HPRN PRN (Reason: LOCKETT, mild pain, or fever >101F) Qty: 0 0RF
Referrals:
Aries Heck MD [Non-Admitting Privileges] - Call in 1-3 days for appt
Sami Guo MD [Active] - Call in 1-3 days for appt
UNKNOWN - PT DOES,NOT KNOW [Family Provider] -
Activity Restrictions/Additional Instructions:
Over the next 3 days, no blowing, no sniffing, no picking your nose. You can continue Vaseline/bacitracin to the entrance of your nostrils each night.
I want you to continue to hold aspirin and along with this over the next 3 days I want you to hold your Xarelto. Continue Plavix as prescribed.
Touch base with Dr. Heck as well as Dr. Guo for follow-up.
Interventions
Interventions:
*Risk Screen - Suicide Last Done: 03/12/24 03:40
*General Assessment Last Done: 03/12/24 03:40
*Neglect/Abuse Screening Last Done: 03/12/24 03:40
ED- Fall Risk Assessment Last Done: 03/12/24 03:53
*ED COVID-19 Vaccine History Last Done: 03/12/24 03:53
ED-EENT Assessment Last Done: 03/12/24 03:53
Discharge Date and Time
Print Language: [place]IZ[place]
[2024-03-12 07:00] VITALS: BP 126/44
== END 2024-03-12 09:10 | disposition home or self-care (01) ==
LOC: EMR 03:32
PROVIDERS: EMERGENCY PHYSICIAN Emergency Medicine
DX: I48.0 Paroxysmal atrial fibrillation (principal); R04.0 Epistaxis; Z79.02 Long term (current) use of antithrombotics/antiplatelets
CPT/HCPCS: 99284; 30901; 80053; 84484; 85025; 93005

== ENCOUNTER → 2024-03-15 08:21 | Outpatient (REF) | payer MEDICARE, SELFPAY ==
[2024-03-15 10:06] LABS: HDL Cholesterol 45 mg/dl; LDL Cholesterol, Calculated 67 mg/dl; Total Cholesterol 132 mg/dl (50-199); Triglyceride 103 mg/dl (10-149); Very Low Density Lipoprotein 20 mg/dl (0-30)
== END ==
LOC: REG 08:21
PROVIDERS: ATTENDING PHYSICIAN Internal Medicine Cardiovascular Disease; FAMILY PHYSICIAN Internal Medicine
DX: Z95.4 Presence of other heart-valve replacement (principal)
CPT/HCPCS: 36415; 80061

== ENCOUNTER 2024-04-03 12:13 | Outpatient (RCR) | payer MEDICARE, SELFPAY | END 2024-04-03 23:59 | disposition home or self-care (01) | LOC: CRHB 12:13 | PROVIDERS: ATTENDING PHYSICIAN Internal Medicine Cardiovascular Disease | DX: I25.10 Atherosclerotic heart disease of native coronary artery without angina pectoris (principal); Z95.4 Presence of other heart-valve replacement; Z95.5 Presence of coronary angioplasty implant and graft | CPT/HCPCS: 36415; 80061; 93797; 93798; G0422; G0423 ==

== ENCOUNTER → 2024-04-17 09:32 | Outpatient (REF) | payer MEDICARE, SELFPAY | LOC: HWRAD 09:32 | PROVIDERS: ATTENDING PHYSICIAN Colon & Rectal Surgery; FAMILY PHYSICIAN Internal Medicine | DX: K59.00 Constipation, unspecified (principal) | CPT/HCPCS: 74261 ==